=== PATIENT | female | born 1990 | race Caucasian/White ===

== ENCOUNTER 2022-04-05 16:15 | Emergency (ER) | payer OTHER, SELFPAY ==
[2022-04-05] MEDS ORDERED: diphenhydrAMINE 50 MG/ML VIAL ONE (18:01)
[2022-04-05] MEDS ORDERED: Sodium Chloride 0.9% 1,000 ML ONE (18:01)
[2022-04-05] MEDS ORDERED: Metoclopramide HCl 10 MG/2 ML VIAL ONE (18:01)
== END 2022-04-05 19:51 | disposition home or self-care (01) ==
LOC: NAV ERS 16:15
DX: O16.1 Unspecified maternal hypertension, first trimester (principal); Z3A.12 12 weeks gestation of pregnancy
CPT/HCPCS: 96374; 96375; J1200; J2765; J7050